=== PATIENT | female | born 1995 | race Caucasian/White ===

== ENCOUNTER 2017-01-18 19:33 | Emergency (ER) | payer OTHER ==
[2017-01-18 21:04] VITALS: BP 116/62
== END 2017-01-18 21:04 | disposition home or self-care (01) ==
LOC: ED 19:33
DX: N39.0 Urinary tract infection, site not specified (principal)

== ENCOUNTER 2017-06-01 20:40 | Inpatient (IN) | payer OTHER ==
[~2017-06-01] VITALS: Ht 160 cm; Wt 61.2 kg
[2017-06-01 22:31] LABS: BASOPHIL % 0.3 % (0-2); PLATELET COUNT 198 x10^3mcL (130-400); RED CELL DISTRIBUTION WIDTH 12.6 % (11.5-14.5)
[2017-06-01 22:45] LABS: CALCIUM 8.5 mg/dL (8.5-10.1); CARBON DIOXIDE 27.6 mmol/L (21-32); CHLORIDE SERUM 105 mmol/L (98-107); CREATININE SERUM 0.7 mg/dL (0.6-1.0); GFR1 > 60 mL/min; GLUCOSE SERUM 107 mg/dL (74-106); POTASSIUM SERUM 3.5 mmol/L (3.5-5.1); SODIUM SERUM 134 mmol/L (136-145)
[2017-06-01 22:49] LABS: ALBUMIN 3.6 g/dL (3.4-5.0); ALKALINE PHOSPHATASE 68 U/L (46-116); ALT/SGPT 18 U/L (14-59); AST/SGOT 14 U/L (15-37); LIPASE 123 IU/L (73-393)
[2017-06-02 00:52] VITALS: BP 99/41
[2017-06-02 00:53] LABS: FREE T4 1.22 ng/dL (0.76-1.46); T4(THYROXINE) 8.4 ug/dL (4.7-13.3)
[2017-06-02 01:21] LABS: CHOLESTEROL/HDL RATIO 2.1; MAGNESIUM 1.6 mg/dL (1.8-2.4); PHOSPHOROUS 2.7 mg/dL (2.5-4.9)
[2017-06-02 02:05] LABS: T3 TOTAL 1.07 ng/mL
[2017-06-02 05:34] VITALS: BP 90/42
[2017-06-02 07:06] LABS: CALCIUM 8.3 mg/dL (8.5-10.1); CARBON DIOXIDE 25.5 mmol/L (21-32); CHLORIDE SERUM 106 mmol/L (98-107); CREATININE SERUM 0.7 mg/dL (0.6-1.0); GFR1 > 60 mL/min; GLUCOSE SERUM 91 mg/dL (74-106); POTASSIUM SERUM 4.1 mmol/L (3.5-5.1); SODIUM SERUM 137 mmol/L (136-145)
[2017-06-02 07:33] LABS: BASOPHIL % 0.3 % (0-2); PLATELET COUNT 177 x10^3mcL (130-400); RED CELL DISTRIBUTION WIDTH 12.3 % (11.5-14.5)
[2017-06-02 10:00] VITALS: BP 105/48
[2017-06-02 10:12] LABS: UA SPECIFIC GRAVITY 1.015 (1.005-1.035); microscopic required? YES; urine erythrocyte TRACE (NEGATIVE)
[2017-06-02 10:38] LABS: AMPHETAMINE QUAL UR NONE DETECTED (NEG <=1000)
[2017-06-02 14:00] VITALS: BP 99/58
[2017-06-02 18:43] VITALS: BP 98/55
[2017-06-02 21:04] VITALS: BP 108/55
[2017-06-03 05:20] VITALS: BP 93/51
[2017-06-03 05:35] LABS: BASOPHIL % 0.3 % (0-2); PLATELET COUNT 159 x10^3mcL (130-400); RED CELL DISTRIBUTION WIDTH 12.8 % (11.5-14.5)
[2017-06-03 05:48] LABS: CALCIUM 8.1 mg/dL (8.5-10.1); CARBON DIOXIDE 26.9 mmol/L (21-32); CHLORIDE SERUM 107 mmol/L (98-107); CREATININE SERUM 0.6 mg/dL (0.6-1.0); GFR1 > 60 mL/min; GLUCOSE SERUM 89 mg/dL (74-106); POTASSIUM SERUM 4.4 mmol/L (3.5-5.1); SODIUM SERUM 137 mmol/L (136-145)
[2017-06-03 09:45] VITALS: BP 113/62
[2017-06-03 13:06] VITALS: BP 116/51
[2017-06-03 13:11] VITALS: BP 116/51
[2017-06-03 16:58] VITALS: BP 101/49
[2017-06-03 20:29] VITALS: BP 108/53
[2017-06-04 05:44] VITALS: BP 106/54
[2017-06-04 06:08] LABS: BASOPHIL % 0.3 % (0-2); PLATELET COUNT 150 x10^3mcL (130-400); RED CELL DISTRIBUTION WIDTH 12.6 % (11.5-14.5)
[2017-06-04 06:12] LABS: CALCIUM 8.3 mg/dL (8.5-10.1); CARBON DIOXIDE 26.5 mmol/L (21-32); CHLORIDE SERUM 105 mmol/L (98-107); CREATININE SERUM 0.6 mg/dL (0.6-1.0); GFR1 > 60 mL/min; GLUCOSE SERUM 96 mg/dL (74-106); POTASSIUM SERUM 3.8 mmol/L (3.5-5.1); SODIUM SERUM 138 mmol/L (136-145)
[2017-06-04 09:29] VITALS: BP 100/52
[2017-06-04] MEDS ORDERED: NORCO1 TA2 PO (15:07)
[2017-06-04] MEDS ORDERED: COL100 PO (15:07)
[2017-06-04 16:08] VITALS: BP 100/52
== END 2017-06-04 17:36 | disposition home or self-care (01) | DRG 263 ==
LOC: ED 20:40 → MU 23:04 → DU 23:04 → MU 23:04 → DU 06-02 00:40 → MU 06-03 11:07
PROVIDERS: Emergency Medicine; Family Medicine Sports Medicine; ADMIT Family Medicine
PROC: 0FT44ZZ Resection of Gallbladder, Percutaneous Endoscopic Approach (ICD-10-PCS; principal; 2017-06-01)
DX: K80.42 Calculus of bile duct with acute cholecystitis without obstruction (principal); E87.1 Hypo-osmolality and hyponatremia; E83.42 Hypomagnesemia; Z68.23 Body mass index [BMI] 23.0-23.9, adult
CPT/HCPCS: 83880; 84439; 94150; J0330; J0696; J1885; J2250; J2270; J2405; J2704; J2710; J3010; J3475; J3490; J7030; J7120; Q0092; Q0162; Q9967